=== PATIENT | female | born 1990 | race Caucasian/White ===

== ENCOUNTER 2023-04-19 07:41 | Emergency (ER) | payer OTHER ==
[2023-04-19 08:00] LABS: HCG URINE TEST NEGATIVE (NEGATIVE)
[2023-04-19 08:08] VITALS: TEMP 98.4
[2023-04-19] MEDS ORDERED: Zofran 4 MG/2 ML VIAL IV STA (08:09)
[2023-04-19] MEDS ORDERED: Sodium Chloride 0.9% 1000 ML 1,000 ML IV STA (08:09)
[2023-04-19] MEDS ORDERED: Zofran 4 MG/2 ML VIAL ONE (08:20)
[2023-04-19] MEDS ORDERED: Sodium Chloride 0.9% 1000 ML 1,000 ML ONE (08:20)
[2023-04-19 08:23] LABS: Absolute Neutrophil Ct (ANC) 2.29 x10^3/uL (1.4-6.9); BASOPHIL % 0.8 % (0.0-0.4); Basophil (Absolute #) 0.04 x10^3/uL (0-0.4); Eosinophil (Absolute #) 0.53 x10^3/uL (0-0.5); Hemoglobin 13.8 g/dL (12.0-16.0); IMMATURE GRAN # 0.01 x10^3u/L (0.00-0.03); IMMATURE GRAN % 0.2 % (0.00-0.4); Lymphocyte (Absolute #) 1.88 x10^3/uL (1.0-4.6); Lymphocytes % 35.6 % (24.0-44.0); Mean Cell Volume 87.1 fL (78-100); Mean Corpuscular Hemoglobin 28.6 pg (26-32); Mean Corpuscular Hgb Concent. 32.9 g/dL (32-36); Mean Platelet Volume 10.9 fL (7.5-11.0); Monocyte (Absolute #) 0.53 x10^3/uL (0.0-1.3); Neutrophil % 43.4 % (36.0-66.0); Platelet Count 218 x10^3/uL (150-450); Red Blood Count 4.82 x10^6/uL (4.1-5.4); Red Cell Distribution Width 12.7 % (11.5-14.0); White Blood Count 5.3 x10^3/uL (4.0-10.5)
[2023-04-19 08:28] LABS: Appearance Cloudy (Clear); Bacteria Rare /HPF (None Seen); Bilirubin Negative (Negative); Blood Negative (Negative); Epithelial Cells Moderate /HPF (None Seen); Glucose, Urine Negative (Negative); Hyaline Casts NONE SEEN /LPF (0-2); Ketones Negative (Negative); Leukocyte Esterase Negative (Negative); Nitrite Negative (Negative); Ph 6.5 (4.6-8.0); Protein,Urine Dip Negative (Negative)
[2023-04-19 08:30] LABS: ADD URINE CULTURE? NO (NO); RBC 0-2 /HPF (0-5)
[2023-04-19 08:37] LABS: ALBUMIN 4.1 g/dL (3.5-5.0); ANION GAP 10.7 MEQ/L (5-15); BILIRUBIN,TOTAL 0.5 mg/dL (0.2-1.3); Creatinine 1 0.49 mg/dL (0.52-1.04); Total Protein 7.2 g/dL (6.3-8.2)
[2023-04-19 08:44] LABS: Group A Strep NOT DETECTED (NEGATIVE)
[2023-04-19 08:57] LABS: INFLUENZA A NEGATIVE (NEGATIVE); INFLUENZA B NEGATIVE (NEGATIVE); RESPIRATORY SYNCTIAL VIRUS NEGATIVE (NEGATIVE); SARS-CoV-2 Xpert Express NEGATIVE (NEGATIVE)
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
[2023-04-19 10:13] VITALS: BP 110/68; PULSE 84; RESP 18; O2SAT 95
== END 2023-04-19 10:13 | disposition home or self-care (01) ==
LOC: ED 07:41
DX: A08.4 Viral intestinal infection, unspecified (principal); R11.2 Nausea with vomiting, unspecified; R19.7 Diarrhea, unspecified; R53.1 Weakness; R53.83 Other fatigue; Z79.899 Other long term (current) drug therapy
CPT/HCPCS: 0241U; 36000; 36415; 80053; 81001; 81025; 83690; 85025; 87651; 96374; 99284; J2405

== ENCOUNTER 2023-05-08 23:12 | Emergency (ER) | payer OTHER ==
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
[2023-05-08 23:45] VITALS: RESP 14; TEMP 98.6
[2023-05-09 00:29] LABS: Absolute Neutrophil Ct (ANC) 3.12 x10^3/uL (1.4-6.9); BASOPHIL % 0.6 % (0.0-0.4); Basophil (Absolute #) 0.03 x10^3/uL (0-0.4); Eosinophil % 6.9 % (0.00-5.0); Eosinophil (Absolute #) 0.36 x10^3/uL (0-0.5); Hematocrit 43.5 % (35-47); Hemoglobin 14.3 g/dL (12.0-16.0); IMMATURE GRAN # 0.02 x10^3u/L (0.00-0.03); IMMATURE GRAN % 0.4 % (0.00-0.4); Lymphocyte (Absolute #) 1.18 x10^3/uL (1.0-4.6); Lymphocytes % 22.7 % (24.0-44.0); Mean Cell Volume 86.8 fL (78-100); Mean Corpuscular Hemoglobin 28.5 pg (26-32); Mean Corpuscular Hgb Concent. 32.9 g/dL (32-36); Mean Platelet Volume 10.9 fL (7.5-11.0); Monocyte (Absolute #) 0.48 x10^3/uL (0.0-1.3); Monocytes % 9.2 % (0.0-12.0); Neutrophil % 60.2 % (36.0-66.0); Platelet Count 241 x10^3/uL (150-450); Red Blood Count 5.01 x10^6/uL (4.1-5.4); Red Cell Distribution Width 12.4 % (11.5-14.0); White Blood Count 5.2 x10^3/uL (4.0-10.5)
[2023-05-09 00:47] LABS: INR 0.99 (0.8-3.0); PROTIME 10.8 SECONDS (9.4-12.5)
[2023-05-09 00:48] LABS: ALBUMIN 4.4 g/dL (3.5-5.0); ANION GAP 14.1 MEQ/L (5-15); BILIRUBIN,TOTAL 0.9 mg/dL (0.2-1.3); Calcium 9.4 mg/dL (8.4-10.2); Creatinine 1 0.47 mg/dL (0.52-1.04); EST GLOMERULAR FILTRATION RATE 131.3 ML/MIN; Potassium 3.8 mmol/L (3.5-5.1)
[2023-05-09] MEDS ORDERED: Flagyl 500 MG PO ONE (01:01)
[2023-05-09] MEDS ORDERED: PENICILLIN V POTASSIUM PO ONE (01:01)
[2023-05-09] MEDS ORDERED: Flagyl 500 MG ONE (01:07)
[2023-05-09] MEDS ORDERED: PENICILLIN V POTASSIUM ONE (01:07)
[2023-05-09 01:19] VITALS: BP 103/62; PULSE 78; O2SAT 97
== END 2023-05-09 01:27 | disposition home or self-care (01) ==
LOC: ED 23:12
DX: K05.10 Chronic gingivitis, plaque induced (principal); R11.10 Vomiting, unspecified; Z79.899 Other long term (current) drug therapy
CPT/HCPCS: 36415; 80053; 82150; 83690; 85025; 85610; 99283; A9270-GY

== ENCOUNTER 2024-06-13 13:31 | Emergency (ER) | payer BC, OTHER ==
[2024-06-13 13:45] VITALS: TEMP 96.7
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
[2024-06-13 14:11] LABS: Absolute Neutrophil Ct (ANC) 2.12 x10^3/uL (1.56-6.13); BASOPHIL % 0.6 % (0.1-1.2); Basophil (Absolute #) 0.02 x10^3/uL (0.01-0.08); Eosinophil (Absolute #) 0 x10^3/uL (0.04-0.36); Hematocrit 44.1 % (34.1-44.9); Hemoglobin 15.2 g/dL (11.2-15.7); IMMATURE GRAN # 0.01 x10^3u/L (0.001-0.031); IMMATURE GRAN % 0.3 % (0.001-0.429); Lymphocyte (Absolute #) 0.93 x10^3/uL (1.18-3.74); Lymphocytes % 26.7 % (19.3-51.7); Mean Corpuscular Hgb Concent. 34.5 g/dL (32.2-35.5); Monocytes % 11.5 % (4.7-12.5); Neutrophil % 60.9 % (34.0-71.1); Platelet Count 200 x10^3/uL (182-369); Red Blood Count 5.25 x10^6/uL (3.93-5.22); Red Cell Distribution Width 12.9 % (11.7-14.4); White Blood Count 3.5 x10^3/uL (3.98-10.04)
[2024-06-13] MEDS ORDERED: Sodium Chloride 0.9% 1000 ML 1,000 ML ONE (14:11)
[2024-06-13] MEDS: Sodium Chloride 0.9% 1000 ML 1,000 ML IV STA (14:12)
[2024-06-13] MEDS ORDERED: DUONEB 0.5-3 MG/3 ml Neb IH ONE (14:21)
[2024-06-13 14:23] LABS: ALBUMIN 4.7 g/dL (3.5-5.0); ANION GAP 15.9 MEQ/L (5-15); BILIRUBIN,TOTAL 0.8 mg/dL (0.2-1.3); Calcium 8.9 mg/dL (8.4-10.2); Potassium 3.6 mmol/L (3.5-5.1); Total Protein 8.2 g/dL (6.3-8.2)
[2024-06-13 14:24] LABS: Creatinine 1 0.55 mg/dL (0.52-1.04); EST GLOMERULAR FILTRATION RATE 125.6 ML/MIN
[2024-06-13] MEDS: DUONEB 0.5-3 MG/3 ml Neb IH ONE (14:25)
[2024-06-13] MEDS: PULMICORT 0.5 MG/2 ML RESPULES IH ONE (14:30)
[2024-06-13 14:49] LABS: INFLUENZA B NEGATIVE (NEGATIVE); RESPIRATORY SYNCTIAL VIRUS NEGATIVE (NEGATIVE); SARS-CoV-2 Xpert Express NEGATIVE (NEGATIVE)
[2024-06-13 14:50] LABS: INFLUENZA A POSITIVE (NEGATIVE)
[2024-06-13] MEDS ORDERED: Tamiflu 75MG Capsule PO ONE (15:01)
[2024-06-13] MEDS: Tamiflu 75MG Capsule PO ONE (15:02)
[2024-06-13 15:08] VITALS: O2SAT 95
[2024-06-13 15:11] VITALS: BP 124/89; PULSE 83; RESP 20
--- NOTE | 2024-06-13 18:38 | XRAY ---
Indication: Short of breath. Comparison: None PA/lateral chest inflated and clear. Heart and mediastinal structures within normal limits. Bony thorax intact with minimal degenerative changes. Impression: Nonacute chest.
== END 2024-06-13 15:22 | disposition home or self-care (01) ==
LOC: ED 13:31
DX: J10.1 Influenza due to other identified influenza virus with other respiratory manifestations (principal); R05.1 Acute cough; R06.02 Shortness of breath; Z79.899 Other long term (current) drug therapy
CPT/HCPCS: 0241U; 36415; 71046; 80053; 85025; 94640; 96360; 99284; A9270-GY